=== PATIENT | female | born 1955 | race Caucasian/White ===

== ENCOUNTER 2020-11-23 04:46 | Day surgery (SDC) | payer OTHER ==
[2020-11-22 10:16] VITALS: BMI 24.9
[2020-11-23] MEDS ORDERED: ACETAMINOPHEN INJECTION 100 ML IVPB ONE (13:12)
[2020-11-23] MEDS ORDERED: ACETAMINOPHEN 1000 MG/100 ML VIAL (NON FORMULARY) IVPB ONE (14:00)
[2020-11-23 16:07] VITALS: BP 114/66; PULSE 68
[2020-11-23 16:10] VITALS: TEMP 98
== END 2020-11-23 16:00 | disposition home or self-care (01) ==
LOC: JRADIR 04:46
PROVIDERS: ATTEND Internal Medicine Hematology & Oncology
PROC: 0FB13ZX Excision of Right Lobe Liver, Percutaneous Approach, Diagnostic (ICD-10-PCS; principal; 2020-11-23)
DX: C22.7 Other specified carcinomas of liver (principal)
CPT/HCPCS: 47000; 76942-TC; 87899; 88305-TC; 88341-TC; 88342-TC; J0131

== ENCOUNTER → 2020-11-28 | Day surgery (SDC) | payer OTHER ==
[2020-11-27 15:15] VITALS: BMI 24.9
[~2020-11-28] MED LIST: ACETAMINOPHEN 1000 MG/100 ML VIAL (NON FORMULARY) IVPB ONE; MIDAZOLAM HCL 2 MG/2 ML SINGLE DOSE VIAL IVPUSH ONE; MIDAZOLAM HCL 2 MG/2 ML SINGLE DOSE VIAL ONE; SODIUM CHLORIDE 1,000 ML IV SCH
[2020-11-28 09:47] LABS: BASO % 1.1 % (0-2.0); EOS % 1.2 % (0-4.5); HEMATOCRIT 45.9 % (32.4-45.2); HEMOGLOBIN 15.7 GM/dL (10.7-15.3); LYMPH % 22.9 % (8-40); MCH 30.4 pg (25.7-33.7); MCHC 34.3 g/dl (32.0-36.0); MEAN CELL VOLUME 88.6 fl (80-96); MEAN PLT VOLUME 7.4 fl (7.5-11.1); MONO % 7.1 % (3.8-10.2); NEUT % 67.7 % (42.8-82.8); PLATELET COUNT 381 10^3/uL (134-434); RBC 5.18 M/mm3 (3.60-5.2); RDW 13.4 % (11.6-15.6); WHITE BLOOD COUNT 6.1 K/mm3 (4.0-10.0)
[2020-11-28 10:08] LABS: ALBUMIN 3.9 g/dl (3.4-5.0); CALCIUM 9.9 mg/dL (8.5-10.1)
[2020-11-28 10:11] LABS: CREATININE 0.6 mg/dL (0.55-1.3)
[2020-11-28 10:12] LABS: BLOOD UREA NITROGEN 12.7 mg/dL (7-18)
[2020-11-28 10:13] LABS: TOT PROT 7.6 g/dl (6.4-8.2)
[2020-11-28 14:13] VITALS: BP 115/75; PULSE 78; TEMP 97
== END | disposition home or self-care (01) ==
LOC: JRADIR 04:52
PROVIDERS: ATTEND Internal Medicine Hematology & Oncology
PROC: 02HV33Z Insertion of Infusion Device into Superior Vena Cava, Percutaneous Approach (ICD-10-PCS; principal; 2020-11-28)
PROC: B548ZZA Ultrasonography of Superior Vena Cava, Guidance (ICD-10-PCS; 2020-11-28)
DX: C25.9 Malignant neoplasm of pancreas, unspecified (principal)
CPT/HCPCS: 36415; 36561; 80053; 85025

== ENCOUNTER 2020-11-29 07:13 | Day surgery (SDC) | payer OTHER ==
[2020-11-29] MEDS ORDERED: SODIUM CHLORIDE 250 ML IV ONE (10:00)
[2020-11-29] MEDS ORDERED: FLUOROURACIL CP ONE ×3 (10:00→15:00)
[2020-11-29] MEDS ORDERED: SODIUM CHLORIDE CP ONE ×3 (10:00→15:00)
[2020-11-29] MEDS ORDERED: DEXAMETHASONE INJECTION 10 MG in SODIUM CHLORIDE 50 ML IVPB ONE (10:30)
[2020-11-29] MEDS ORDERED: PALONOSETRON HCL 0.25 MG/5 ML VIAL IVPUSH ONE (10:30)
[2020-11-29] MEDS ORDERED: ATROPINE SO4 0.4 MG/1 ML VIAL SQ ONE (10:30)
[2020-11-29] MEDS ORDERED: FOSAPREPITANT DIMEGLUMINE 150 MG VIAL IVPB ONE (10:30)
[2020-11-29] MEDS ORDERED: LEUCOVORIN CALCIUM IVPB ONE (13:00)
[2020-11-29] MEDS ORDERED: DEXTROSE 5% IVPB ONE (13:00)
[2020-11-29] MEDS ORDERED: WATER IVPB ONE (13:00)
[2020-11-29] MEDS ORDERED: IRINOTECAN HCL 270 MG in DEXTROSE 5%-WATER - 500 ML IVPB ONE (13:30)
[2020-11-29 17:55] VITALS: TEMP 98.1
[2020-11-29 17:58] VITALS: BP 117/70; PULSE 70
[2020-11-30] MEDS ORDERED: PORTA CATH FLUSH 10 ML IVPUSH ONE (07:32)
== END 2020-11-29 18:04 | disposition home or self-care (01) ==
LOC: JONCCHEMO 07:13
PROVIDERS: ATTEND Internal Medicine Hematology & Oncology
DX: Z51.11 Encounter for antineoplastic chemotherapy (principal); C25.9 Malignant neoplasm of pancreas, unspecified
CPT/HCPCS: 96361; 96366; 96367; 96375; 96413; 96415; 96417; G0498; J1100; J1453; J2469; J9206; J9263

== ENCOUNTER 2020-12-03 07:01 | Day surgery (SDC) | payer OTHER ==
[2020-12-03] MEDS ORDERED: TBO-FILGRASTIM 300 MCG/0.5 ML DISP.SYRINGE SQ ONE (10:00)
[2020-12-03 17:47] VITALS: BP 112/76; PULSE 74; TEMP 98.3
== END 2020-12-03 09:50 | disposition home or self-care (01) ==
LOC: JONCCHEMO 07:01
PROVIDERS: ATTEND Internal Medicine Hematology & Oncology
PROC: 3E013GC Introduction of Other Therapeutic Substance into Subcutaneous Tissue, Percutaneous Approach (ICD-10-PCS; principal; 2020-12-03)
DX: C25.9 Malignant neoplasm of pancreas, unspecified (principal); Z76.89 Persons encountering health services in other specified circumstances
CPT/HCPCS: 96372; J1447

== ENCOUNTER 2020-12-05 07:22 | Day surgery (SDC) | payer OTHER ==
[2020-12-05] MEDS ORDERED: TBO-FILGRASTIM 300 MCG/0.5 ML DISP.SYRINGE SQ ONE (10:30)
[2020-12-05 17:50] VITALS: BP 137/93; PULSE 114; TEMP 97.5
== END 2020-12-05 12:00 | disposition home or self-care (01) ==
LOC: JONCCHEMO 07:22
PROVIDERS: ATTEND Internal Medicine Hematology & Oncology
PROC: 3E013GC Introduction of Other Therapeutic Substance into Subcutaneous Tissue, Percutaneous Approach (ICD-10-PCS; principal; 2020-12-05)
DX: C25.9 Malignant neoplasm of pancreas, unspecified (principal); Z76.89 Persons encountering health services in other specified circumstances
CPT/HCPCS: 96372; J1447

== ENCOUNTER 2020-12-07 07:47 | Day surgery (SDC) | payer OTHER ==
[2020-12-07 09:43] LABS: HEMATOCRIT 43.6 % (32.4-45.2); HEMOGLOBIN 15.2 GM/dL (10.7-15.3); MCH 29.9 pg (25.7-33.7); MCHC 34.8 g/dl (32.0-36.0); MEAN CELL VOLUME 85.9 fl (80-96); MEAN PLT VOLUME 7.4 fl (7.5-11.1); PLATELET COUNT 159 10^3/uL (134-434); RBC 5.07 M/mm3 (3.60-5.2); RDW 13.2 % (11.6-15.6); WHITE BLOOD COUNT 4.4 K/mm3 (4.0-10.0)
[2020-12-07] MEDS ORDERED: TBO-FILGRASTIM 300 MCG/0.5 ML DISP.SYRINGE SQ ONE (10:00)
[2020-12-07 10:09] LABS: CALCIUM 8.5 mg/dL (8.5-10.1)
[2020-12-07 10:10] LABS: BLOOD UREA NITROGEN 11.6 mg/dL (7-18)
[2020-12-07 10:13] LABS: CREATININE 0.7 mg/dL (0.55-1.3)
[2020-12-07 10:14] LABS: BILIRUBIN,TOTAL 0.4 mg/dL (0.2-1); TOT PROT 6.4 g/dl (6.4-8.2)
[2020-12-07 10:39] LABS: ANISOCYTOSIS 1+; MACROCYTOSIS 0; PLATELET ESTIMATE DECREASED; TOXIC GRANULATION 2+
[2020-12-07 17:23] VITALS: BP 117/73; PULSE 79; TEMP 97.4
== END 2020-12-07 10:10 | disposition home or self-care (01) ==
LOC: JONCNONCHE 07:47
PROVIDERS: ATTEND Internal Medicine Hematology & Oncology
PROC: 3E013GC Introduction of Other Therapeutic Substance into Subcutaneous Tissue, Percutaneous Approach (ICD-10-PCS; principal; 2020-12-07)
DX: C25.9 Malignant neoplasm of pancreas, unspecified (principal); Z76.89 Persons encountering health services in other specified circumstances
CPT/HCPCS: 36415; 80053; 85025; 96372; J1447

== ENCOUNTER 2020-12-12 07:53 | Day surgery (SDC) | payer OTHER ==
[2020-12-12] MEDS ORDERED: SODIUM CHLORIDE 250 ML IV ONE (09:00)
[2020-12-12] MEDS ORDERED: FOSAPREPITANT DIMEGLUMINE 150 MG in SODIUM CHLORIDE 145 ML IVPB ONE (09:30)
[2020-12-12] MEDS ORDERED: PALONOSETRON HCL 0.25 MG/5 ML VIAL IVPUSH ONE (09:30)
[2020-12-12] MEDS ORDERED: DEXAMETHASONE INJECTION 10 MG in SODIUM CHLORIDE 50 ML IVPB ONE (09:30)
[2020-12-12] MEDS ORDERED: ATROPINE SO4 0.4 MG/1 ML VIAL SQ ONE (09:30)
[2020-12-12 09:51] LABS: HEMOGLOBIN 14.6 GM/dL (10.7-15.3); MCHC 35.7 g/dl (32.0-36.0); MEAN CELL VOLUME 84.2 fl (80-96); PLATELET COUNT 399 10^3/uL (134-434); RBC 4.87 M/mm3 (3.60-5.2); RDW 13.3 % (11.6-15.6); WHITE BLOOD COUNT 4.1 K/mm3 (4.0-10.0)
[2020-12-12 10:14] LABS: CHLORIDE 101 mmol/L (98-107); SODIUM 135 mmol/L (136-145)
[2020-12-12 10:18] LABS: ALBUMIN 2.4 g/dl (3.4-5.0); BLOOD UREA NITROGEN 14.5 mg/dL (7-18); CALCIUM 8.6 mg/dL (8.5-10.1); CO2 25 mmol/L (21-32)
[2020-12-12 10:19] LABS: GLUCOSE,RANDOM 146 mg/dL (74-106)
[2020-12-12 10:21] LABS: SGOT/AST 24 U/L (15-37); SGPT/ALT 55 U/L (13-61)
[2020-12-12 10:22] LABS: CREATININE 1.1 mg/dL (0.55-1.3)
[2020-12-12 10:23] LABS: BILIRUBIN,TOTAL 0.7 mg/dL (0.2-1); TOT PROT 5.6 g/dl (6.4-8.2)
[2020-12-12 10:24] LABS: ALK PHOS 101 U/L (45-117)
[2020-12-12 10:28] LABS: ANION GAP 9 MMOL/L (8-16)
[2020-12-12] MEDS ORDERED: SODIUM CHLORIDE 500 ML IV STA (10:47)
[2020-12-12] MEDS ORDERED: POTASSIUM CHLORIDE ORAL LIQUID 20 MEQ/15 ML PO ONE ×2 (10:47→20:48)
[2020-12-12] MEDS: KCL 10 MEQ IVPB 10 MEQ/100 ML INFUS.BAG IVPB SCH ×3 (11:45→21:00)
[2020-12-12] MEDS ORDERED: WATER IVPB ONE ×2 (12:00→13:30)
[2020-12-12] MEDS ORDERED: DEXTROSE 5% IVPB ONE ×2 (12:00→13:30)
[2020-12-12] MEDS ORDERED: LEUCOVORIN IVPB ONE (12:00)
[2020-12-12 12:10] LABS: PLATELET ESTIMATE NORMAL
[2020-12-12] MEDS ORDERED: IRINOTECAN HCL 270 MG in DEXTROSE 5%-WATER - 500 ML IVPB ONE (12:30)
[2020-12-12] MEDS ORDERED: ALTEPLASE (CATHFLO) 2 MG/2 ML VIAL CVP ONE (12:48)
[2020-12-12] MEDS ORDERED: DEXAMETHASONE SOD PHOSPHATE 20 MG/5 ML VIAL IVPB ONE (12:51)
[2020-12-12] MEDS ORDERED: DEXAMETHASONE SODIUM PHOSPHATE 20 MG, DIPHENHYDRAMINE 25 MG in SODIUM CHLORIDE 100 ML IVPB ONE (13:30)
[2020-12-12] MEDS ORDERED: IRINOTECAN HCL IVPB ONE (13:30)
[2020-12-12] MEDS ORDERED: SODIUM CHLORIDE CP ONE (14:00)
[2020-12-12] MEDS ORDERED: FLUOROURACIL CP ONE (14:00)
[2020-12-12 20:36] VITALS: TEMP 97.7
[2020-12-12 21:58] VITALS: BP 121/74; PULSE 69
== END 2020-12-12 22:03 | disposition home or self-care (01) ==
LOC: JONCCHEMO 07:53
PROVIDERS: ATTEND Internal Medicine Hematology & Oncology
PROC: B518YZZ Fluoroscopy of Superior Vena Cava using Other Contrast (ICD-10-PCS; principal; 2020-12-12)
PROC: 3E04305 Introduction of Other Antineoplastic into Central Vein, Percutaneous Approach (ICD-10-PCS; 2020-12-12)
DX: Z51.11 Encounter for antineoplastic chemotherapy (principal); C25.9 Malignant neoplasm of pancreas, unspecified
CPT/HCPCS: 36010; 36415; 36598; 75827-TC-FY; 80053; 84132; 85025; 96366; 96367; 96375; 96413; 96415; 96417; J1453; J2469; J2997; J9206; J9263

== ENCOUNTER 2020-12-14 08:43 | Day surgery (SDC) | payer OTHER ==
[2020-12-14] MEDS ORDERED: SODIUM CHLORIDE 1,000 ML IV ONE (11:30)
[2020-12-14 11:53] LABS: BASO % 0.1 % (0-2.0); EOS % 0.1 % (0-4.5); HEMATOCRIT 39.3 % (32.4-45.2); HEMOGLOBIN 13.9 GM/dL (10.7-15.3); LYMPH % 14.2 % (8-40); MCH 30.1 pg (25.7-33.7); MCHC 35.5 g/dl (32.0-36.0); MEAN CELL VOLUME 84.9 fl (80-96); NEUT % 77.6 % (42.8-82.8); PLATELET COUNT 431 10^3/uL (134-434); RBC 4.63 M/mm3 (3.60-5.2); RDW 13.4 % (11.6-15.6); WHITE BLOOD COUNT 3.7 K/mm3 (4.0-10.0)
[2020-12-14 12:12] LABS: ALBUMIN 2.7 g/dl (3.4-5.0); CALCIUM 8.8 mg/dL (8.5-10.1)
[2020-12-14 12:13] LABS: BLOOD UREA NITROGEN 18.3 mg/dL (7-18); MAGNESIUM 2.2 mg/dL (1.8-2.4)
[2020-12-14 12:16] LABS: CREATININE 1.1 mg/dL (0.55-1.3)
[2020-12-14 12:17] LABS: BILIRUBIN,TOTAL 0.6 mg/dL (0.2-1); TOT PROT 6.1 g/dl (6.4-8.2)
[2020-12-14] MEDS ORDERED: SODIUM CHLORIDE 1,000 ML IV SCH (14:30)
[2020-12-14] MEDS ORDERED: POTASSIUM CHLORIDE ORAL LIQUID 20 MEQ/15 ML PO ONE (14:45)
[2020-12-14 17:06] VITALS: TEMP 97.8
[2020-12-14 19:31] VITALS: BP 113/69; PULSE 66
== END 2020-12-14 19:32 | disposition home or self-care (01) ==
LOC: JONCCHEMO 08:43
PROVIDERS: ATTEND Internal Medicine Hematology & Oncology
PROC: 3E0437Z Introduction of Electrolytic and Water Balance Substance into Central Vein, Percutaneous Approach (ICD-10-PCS; principal; 2020-12-14)
DX: C25.9 Malignant neoplasm of pancreas, unspecified (principal)
CPT/HCPCS: 36415; 80053; 83735; 85025; 96360; 96361

== ENCOUNTER 2020-12-18 07:26 | Day surgery (SDC) | payer OTHER ==
[2020-12-18] MEDS ORDERED: SODIUM CHLORIDE 500 ML IV ONE (10:30)
[2020-12-18 15:49] VITALS: TEMP 98.2
[2020-12-18 15:51] VITALS: BP 92/46; PULSE 74
== END 2020-12-18 12:20 | disposition home or self-care (01) ==
LOC: JONCNONCHE 07:26
PROVIDERS: ATTEND Internal Medicine Hematology & Oncology
PROC: 3E0437Z Introduction of Electrolytic and Water Balance Substance into Central Vein, Percutaneous Approach (ICD-10-PCS; principal; 2020-12-18)
DX: C25.9 Malignant neoplasm of pancreas, unspecified (principal); Z76.89 Persons encountering health services in other specified circumstances
CPT/HCPCS: 96360; 96361

== ENCOUNTER 2020-12-20 07:47 | Day surgery (SDC) | payer OTHER ==
[2020-12-20 10:13] LABS: HEMATOCRIT 37.7 % (32.4-45.2); HEMOGLOBIN 13.1 GM/dL (10.7-15.3); MCHC 34.7 g/dl (32.0-36.0); MEAN CELL VOLUME 86.4 fl (80-96); MEAN PLT VOLUME 7.8 fl (7.5-11.1); PLATELET COUNT 127 10^3/uL (134-434); RBC 4.36 M/mm3 (3.60-5.2); RDW 13.5 % (11.6-15.6); WHITE BLOOD COUNT 2.3 K/mm3 (4.0-10.0)
[2020-12-20] MEDS ORDERED: SODIUM CHLORIDE 500 ML IV ONE (10:30)
[2020-12-20 10:33] LABS: CALCIUM 7.9 mg/dL (8.5-10.1)
[2020-12-20 10:34] LABS: ALBUMIN 2.7 g/dl (3.4-5.0); BLOOD UREA NITROGEN 6.3 mg/dL (7-18)
[2020-12-20 10:37] LABS: CREATININE 0.8 mg/dL (0.55-1.3)
[2020-12-20 10:39] LABS: BILIRUBIN,TOTAL 0.4 mg/dL (0.2-1); TOT PROT 5.4 g/dl (6.4-8.2)
[2020-12-20 11:24] LABS: ANISOCYTOSIS 0; HELMET CELLS 0; HOWELL-JOLLY BODIES 0; MACROCYTOSIS 0; OVALOCYTE 0; PLATELET ESTIMATE DECREASED; ROULEAU 0; SICKELED CELLS 0; TARGET CELLS 0; TEAR DROP CELLS 0; TOXIC GRANULATION 0
[2020-12-20] MEDS ORDERED: POTASSIUM CHLORIDE TABS 20 MEQ TABLET.ER (FP) PO ONE (12:15)
[2020-12-20 14:10] VITALS: TEMP 97.4
[2020-12-20 14:27] VITALS: BP 124/77; PULSE 74
== END 2020-12-20 12:25 | disposition home or self-care (01) ==
LOC: JONCCHEMO 07:47
PROVIDERS: ATTEND Internal Medicine Hematology & Oncology
PROC: 3E0437Z Introduction of Electrolytic and Water Balance Substance into Central Vein, Percutaneous Approach (ICD-10-PCS; principal; 2020-12-20)
DX: C25.9 Malignant neoplasm of pancreas, unspecified (principal); Z76.89 Persons encountering health services in other specified circumstances
CPT/HCPCS: 36415; 80053; 82378; 83735; 85025; 86301; 96360; 96361

== ENCOUNTER → 2020-12-26 | Day surgery (SDC) | payer OTHER ==
[~2020-12-26] MED LIST changes: -ACETAMINOPHEN 1000 MG/100 ML VIAL (NON FORMULARY) IVPB ONE; +ATROPINE SO4 0.4 MG/1 ML VIAL SQ ONE; +DEXAMETHASONE INJECTION 10 MG in SODIUM CHLORIDE 50 ML IVPB ONE; +DEXTROSE 5% IVPB ONE; +FLUOROURACIL 4,350 MG in SODIUM CHLORIDE 5 ML CP ONE; +FOSAPREPITANT DIMEGLUMINE 150 MG in SODIUM CHLORIDE 145 ML IVPB ONE; +IRINOTECAN HCL IVPB ONE; +LEUCOVORIN IVPB ONE; -MIDAZOLAM HCL 2 MG/2 ML SINGLE DOSE VIAL IVPUSH ONE; -MIDAZOLAM HCL 2 MG/2 ML SINGLE DOSE VIAL ONE; +PALONOSETRON HCL 0.25 MG/5 ML VIAL IVPUSH ONE; +POTASSIUM CHLORIDE 10 MEQ PREMIX IVPB (POTASSIUM RIDER) IVPB SCH; +POTASSIUM CHLORIDE 20 MEQ PREMIX IVPB 100 ML IVPB ONE; +POTASSIUM CHLORIDE 20 MEQ PREMIX IVPB 100 ML IVPB SCH; +POTASSIUM CHLORIDE TABS 10 MEQ TABLET.ER (FP) PO ONE; +SODIUM CHLORIDE 0.9% 500 ML INFUS.BAG IV ONE; -SODIUM CHLORIDE 1,000 ML IV SCH; +SODIUM CHLORIDE 250 ML IV ONE; +WATER IVPB ONE
[2020-12-26 09:12] LABS: HEMATOCRIT 36.4 % (32.4-45.2); HEMOGLOBIN 12.7 GM/dL (10.7-15.3); MCH 29.7 pg (25.7-33.7); MCHC 34.9 g/dl (32.0-36.0); MEAN CELL VOLUME 85.1 fl (80-96); PLATELET COUNT 199 10^3/uL (134-434); RBC 4.28 M/mm3 (3.60-5.2); RDW 14.5 % (11.6-15.6); WHITE BLOOD COUNT 9.3 K/mm3 (4.0-10.0)
[2020-12-26 09:38] LABS: CHLORIDE 108 mmol/L (98-107); SODIUM 143 mmol/L (136-145)
[2020-12-26 09:41] LABS: ALBUMIN 2.2 g/dl (3.4-5.0); BLOOD UREA NITROGEN 10.6 mg/dL (7-18); CO2 29 mmol/L (21-32); GLUCOSE,RANDOM 86 mg/dL (74-106)
[2020-12-26 09:44] LABS: CREATININE 0.7 mg/dL (0.55-1.3); SGOT/AST 27 U/L (15-37); SGPT/ALT 27 U/L (13-61)
[2020-12-26 09:46] LABS: BILIRUBIN,TOTAL 0.3 mg/dL (0.2-1)
[2020-12-26 10:00] LABS: ALK PHOS 143 U/L (45-117); ANION GAP 7 MMOL/L (8-16)
[2020-12-26 10:40] LABS: ANISOCYTOSIS 1+; MACROCYTOSIS 0; PLATELET ESTIMATE NORMAL; TEAR DROP CELLS 1+; TOXIC GRANULATION 2+
[2020-12-26] MEDS: KCL 10 MEQ IVPB 10 MEQ/100 ML INFUS.BAG IVPB SCH ×2 (11:25→12:18)
[2020-12-26 16:49] VITALS: TEMP 97.4
[2020-12-26 19:01] VITALS: BP 120/79; PULSE 66
== END | disposition home or self-care (01) ==
LOC: JONCCHEMO 08:21
PROVIDERS: ATTEND Internal Medicine Hematology & Oncology
DX: Z51.11 Encounter for antineoplastic chemotherapy (principal); C25.9 Malignant neoplasm of pancreas, unspecified
CPT/HCPCS: 36415; 80053; 83735; 85025; 96361; 96366; 96367; 96375; 96413; 96415; 96417; G0498; J1100; J1453; J2469; J9206; J9263

== ENCOUNTER 2020-12-28 08:36 | Day surgery (SDC) | payer OTHER ==
[2020-12-28] MEDS ORDERED: ALTEPLASE (CATHFLO) 2 MG/2 ML VIAL NR ONE (13:00)
[2020-12-28] MEDS ORDERED: D5-1/2NS+20 MEQ KCL - 20 MEQ/1,000 ML INFUS.BAG IV ONE (13:00)
[2020-12-28] MEDS ORDERED: MAGNESIUM 1GM/D5W - 1 GM/100 ML IVPB IVPB ONE (13:00)
[2020-12-28 13:34] LABS: BASO % 0.1 % (0-2.0); EOS % 0.2 % (0-4.5); HEMATOCRIT 35.8 % (32.4-45.2); HEMOGLOBIN 12.2 GM/dL (10.7-15.3); LYMPH % 34.6 % (8-40); MCH 29.5 pg (25.7-33.7); MCHC 34.2 g/dl (32.0-36.0); MEAN CELL VOLUME 86.3 fl (80-96); MEAN PLT VOLUME 7.2 fl (7.5-11.1); MONO % 4.2 % (3.8-10.2); NEUT % 60.9 % (42.8-82.8); PLATELET COUNT 191 10^3/uL (134-434); RBC 4.15 M/mm3 (3.60-5.2); RDW 14.4 % (11.6-15.6); WHITE BLOOD COUNT 3.9 K/mm3 (4.0-10.0)
[2020-12-28 13:54] LABS: CALCIUM 8.3 mg/dL (8.5-10.1)
[2020-12-28 13:56] LABS: ALBUMIN 2.4 g/dl (3.4-5.0); BLOOD UREA NITROGEN 15.1 mg/dL (7-18); MAGNESIUM 2.3 mg/dL (1.8-2.4)
[2020-12-28 13:58] LABS: CREATININE 0.7 mg/dL (0.55-1.3)
[2020-12-28 14:00] LABS: BILIRUBIN,TOTAL 0.5 mg/dL (0.2-1); TOT PROT 5.3 g/dl (6.4-8.2)
[2020-12-28 15:48] VITALS: BP 99/55; PULSE 62; TEMP 98
== END 2020-12-28 18:05 | disposition home or self-care (01) ==
LOC: JONCCHEMO 08:36
PROVIDERS: ATTEND Internal Medicine Hematology & Oncology
PROC: 3E043GC Introduction of Other Therapeutic Substance into Central Vein, Percutaneous Approach (ICD-10-PCS; principal; 2020-12-28)
PROC: 3E043GC Introduction of Other Therapeutic Substance into Central Vein, Percutaneous Approach (ICD-10-PCS; 2020-12-28)
DX: C25.9 Malignant neoplasm of pancreas, unspecified (principal); Z76.89 Persons encountering health services in other specified circumstances
CPT/HCPCS: 36415; 80053; 83735; 84100; 85025; 96361; 96365; J2997

== ENCOUNTER 2021-01-23 07:58 | Day surgery (SDC) | payer OTHER ==
[~2021-01-23 07:58] MED LIST changes: -DEXAMETHASONE INJECTION 10 MG in SODIUM CHLORIDE 50 ML IVPB ONE; +DEXAMETHASONE SODIUM PHOSPHATE 10 MG in SODIUM CHLORIDE 50 ML IVPB ONE; -POTASSIUM CHLORIDE 10 MEQ PREMIX IVPB (POTASSIUM RIDER) IVPB SCH; -POTASSIUM CHLORIDE 20 MEQ PREMIX IVPB 100 ML IVPB ONE; -POTASSIUM CHLORIDE 20 MEQ PREMIX IVPB 100 ML IVPB SCH; -POTASSIUM CHLORIDE TABS 10 MEQ TABLET.ER (FP) PO ONE; -SODIUM CHLORIDE 0.9% 500 ML INFUS.BAG IV ONE
[2021-01-23] MEDS ORDERED: SODIUM CHLORIDE 250 ML IV ONE (10:00)
[2021-01-23 10:19] LABS: BASO % 1.9 % (0-2.0); EOS % 0.6 % (0-4.5); HEMATOCRIT 35.1 % (32.4-45.2); HEMOGLOBIN 11.5 GM/dL (10.7-15.3); LYMPH % 45.5 % (8-40); MCH 29.7 pg (25.7-33.7); MCHC 32.8 g/dl (32.0-36.0); MEAN CELL VOLUME 90.6 fl (80-96); MEAN PLT VOLUME 6.3 fl (7.5-11.1); MONO % 13.6 % (3.8-10.2); NEUT % 38.4 % (42.8-82.8); PLATELET COUNT 434 10^3/uL (134-434); RBC 3.88 M/mm3 (3.60-5.2); RDW 18.3 % (11.6-15.6); WHITE BLOOD COUNT 4.3 K/mm3 (4.0-10.0)
[2021-01-23] MEDS ORDERED: PALONOSETRON HCL 0.25 MG/5 ML VIAL IVPUSH ONE (10:30)
[2021-01-23] MEDS ORDERED: FOSAPREPITANT DIMEGLUMINE 150 MG in SODIUM CHLORIDE 145 ML IVPB ONE (10:30)
[2021-01-23] MEDS ORDERED: ATROPINE SO4 0.4 MG/1 ML VIAL SQ ONE (10:30)
[2021-01-23] MEDS ORDERED: DEXAMETHASONE INJECTION 10 MG in SODIUM CHLORIDE 50 ML IVPB ONE (10:30)
[2021-01-23 10:41] LABS: CALCIUM 8.7 mg/dL (8.5-10.1)
[2021-01-23 10:42] LABS: ALBUMIN 2.5 g/dl (3.4-5.0); BLOOD UREA NITROGEN 13.2 mg/dL (7-18); MAGNESIUM 2.6 mg/dL (1.8-2.4)
[2021-01-23 10:45] LABS: CREATININE 0.6 mg/dL (0.55-1.3)
[2021-01-23 10:47] LABS: BILIRUBIN,TOTAL 0.3 mg/dL (0.2-1); TOT PROT 6.2 g/dl (6.4-8.2)
[2021-01-23] MEDS ORDERED: SODIUM CHLORIDE 500 ML IV ONE (11:45)
[2021-01-23] MEDS ORDERED: WATER IVPB ONE ×2 (13:00)
[2021-01-23] MEDS ORDERED: IRINOTECAN HCL IVPB ONE (13:00)
[2021-01-23] MEDS ORDERED: DEXTROSE 5% IVPB ONE ×2 (13:00)
[2021-01-23] MEDS ORDERED: LEUCOVORIN IVPB ONE (13:00)
[2021-01-23] MEDS ORDERED: FLUOROURACIL 4,350 MG in SODIUM CHLORIDE 5 ML CP ONE (14:00)
[2021-01-23 17:52] VITALS: TEMP 98
[2021-01-23 18:42] VITALS: BP 127/76; PULSE 52
[2021-01-25 08:06] LABS: CARCINOEMBRYONIC ANTIGEN 40.1 ng/mL (0.0-4.7)
== END 2021-01-23 18:42 | disposition home or self-care (01) ==
LOC: JONCCHEMO 07:58
PROVIDERS: ATTEND Internal Medicine Hematology & Oncology
DX: Z51.11 Encounter for antineoplastic chemotherapy (principal); C25.9 Malignant neoplasm of pancreas, unspecified
CPT/HCPCS: 36415; 80053; 82378; 83735; 85025; 86301; 96361; 96366; 96367; 96375; 96413; 96415; 96417; G0498; J1100; J1453; J2469; J9206; J9263

== ENCOUNTER 2021-02-06 07:25 | Day surgery (SDC) | payer OTHER ==
[2021-02-06 10:00] LABS: BASO % 1.4 % (0-2.0); EOS % 3.4 % (0-4.5); HEMATOCRIT 36.3 % (32.4-45.2); HEMOGLOBIN 12.1 GM/dL (10.7-15.3); LYMPH % 49.2 % (8-40); MCH 30.1 pg (25.7-33.7); MCHC 33.4 g/dl (32.0-36.0); MEAN CELL VOLUME 90.1 fl (80-96); MEAN PLT VOLUME 6.8 fl (7.5-11.1); MONO % 9.8 % (3.8-10.2); NEUT % 36.2 % (42.8-82.8); PLATELET COUNT 216 10^3/uL (134-434); RBC 4.03 M/mm3 (3.60-5.2); RDW 17.5 % (11.6-15.6)
[2021-02-06 10:19] LABS: ALBUMIN 2.9 g/dl (3.4-5.0); CALCIUM 8.9 mg/dL (8.5-10.1); MAGNESIUM 2.4 mg/dL (1.8-2.4)
[2021-02-06 10:20] LABS: BLOOD UREA NITROGEN 11.4 mg/dL (7-18)
[2021-02-06 10:22] LABS: CREATININE 0.5 mg/dL (0.55-1.3)
[2021-02-06 10:24] LABS: BILIRUBIN,TOTAL 0.4 mg/dL (0.2-1); TOT PROT 6.4 g/dl (6.4-8.2)
[2021-02-06] MEDS ORDERED: SODIUM CHLORIDE 250 ML IV ONE (11:30)
[2021-02-06] MEDS ORDERED: FOSAPREPITANT DIMEGLUMINE 150 MG in SODIUM CHLORIDE 145 ML IVPB ONE (12:00)
[2021-02-06] MEDS ORDERED: DEXAMETHASONE INJECTION 10 MG in SODIUM CHLORIDE 50 ML IVPB ONE (12:00)
[2021-02-06] MEDS ORDERED: PALONOSETRON HCL 0.25 MG/5 ML VIAL IVPUSH ONE (12:00)
[2021-02-06] MEDS ORDERED: ATROPINE SO4 0.4 MG/1 ML VIAL SQ ONE (12:00)
[2021-02-06] MEDS ORDERED: POTASSIUM CHLORIDE TABS 10 MEQ TABLET.ER (FP) PO ONE (12:18)
[2021-02-06] MEDS ORDERED: POTASSIUM CHLORIDE TABS 20 MEQ TABLET.ER (FP) PO ONE (13:00)
[2021-02-06] MEDS ORDERED: KCL 10 MEQ IVPB 10 MEQ/100 ML INFUS.BAG IVPB SCH (13:00)
[2021-02-06] MEDS ORDERED: LEUCOVORIN IVPB ONE (14:00)
[2021-02-06] MEDS ORDERED: IRINOTECAN HCL 210 MG in DEXTROSE 5%-WATER - 500 ML IVPB ONE (14:00)
[2021-02-06] MEDS ORDERED: WATER IVPB ONE (14:00)
[2021-02-06] MEDS ORDERED: DEXTROSE 5% IVPB ONE (14:00)
[2021-02-06] MEDS ORDERED: FLUOROURACIL CP ONE (14:30)
[2021-02-06] MEDS ORDERED: SODIUM CHLORIDE CP ONE (14:30)
[2021-02-06 18:42] VITALS: TEMP 97.9
[2021-02-06] MEDS ORDERED: PORTA CATH FLUSH 10 ML IVPUSH ONE (18:52)
[2021-02-06 19:34] VITALS: BP 135/84; PULSE 58
== END 2021-02-06 19:42 | disposition home or self-care (01) ==
LOC: JONCCHEMO 07:25
PROVIDERS: ATTEND Internal Medicine Hematology & Oncology
DX: Z51.11 Encounter for antineoplastic chemotherapy (principal); C25.9 Malignant neoplasm of pancreas, unspecified
CPT/HCPCS: 36415; 80053; 83735; 85025; 96366; 96367; 96374; 96375; 96413; 96415; 96417; G0498; J1100; J1453; J2469; J9206; J9263

== ENCOUNTER 2021-02-08 07:57 | Day surgery (SDC) | payer OTHER ==
[2021-02-08 15:59] LABS: CALCIUM 8.6 mg/dL (8.5-10.1)
[2021-02-08 16:00] LABS: BLOOD UREA NITROGEN 11.3 mg/dL (7-18); MAGNESIUM 2.5 mg/dL (1.8-2.4)
[2021-02-08 16:03] LABS: CREATININE 0.5 mg/dL (0.55-1.3)
[2021-02-08 17:01] VITALS: BP 107/71; PULSE 66; TEMP 98.5
== END 2021-02-08 17:00 | disposition home or self-care (01) ==
LOC: JONCNONCHE 07:57
PROVIDERS: ATTEND Internal Medicine Hematology & Oncology
DX: Z53.8 Procedure and treatment not carried out for other reasons (principal)
CPT/HCPCS: 36415; 80048; 83735

== ENCOUNTER 2021-02-20 07:11 | Day surgery (SDC) | payer OTHER ==
[2021-02-20 09:18] LABS: HEMATOCRIT 36.5 % (32.4-45.2); HEMOGLOBIN 12.3 GM/dL (10.7-15.3); MCH 30.9 pg (25.7-33.7); MCHC 33.8 g/dl (32.0-36.0); MEAN CELL VOLUME 91.3 fl (80-96); MEAN PLT VOLUME 7.7 fl (7.5-11.1); PLATELET COUNT 141 10^3/uL (134-434); RDW 17.6 % (11.6-15.6); WHITE BLOOD COUNT 4.5 K/mm3 (4.0-10.0)
[2021-02-20] MEDS ORDERED: SODIUM CHLORIDE 250 ML IV ONE (09:30)
[2021-02-20 09:34] LABS: CALCIUM 8.6 mg/dL (8.5-10.1)
[2021-02-20 09:35] LABS: ALBUMIN 2.8 g/dl (3.4-5.0); BLOOD UREA NITROGEN 8.7 mg/dL (7-18); MAGNESIUM 2.3 mg/dL (1.8-2.4)
[2021-02-20 09:38] LABS: CREATININE 0.5 mg/dL (0.55-1.3)
[2021-02-20 09:39] LABS: BILIRUBIN,TOTAL 0.4 mg/dL (0.2-1); TOT PROT 6.4 g/dl (6.4-8.2)
[2021-02-20 10:00] LABS: ANISOCYTOSIS 0; HELMET CELLS 0; HOWELL-JOLLY BODIES 0; MACROCYTOSIS 0; OVALOCYTE 0; PLATELET ESTIMATE DECREASED; ROULEAU 0; SICKELED CELLS 0; TARGET CELLS 0; TEAR DROP CELLS 0; TOXIC GRANULATION 0
[2021-02-20] MEDS ORDERED: DEXAMETHASONE SODIUM PHOSPHATE 10 MG in SODIUM CHLORIDE 50 ML IVPB ONE (10:00)
[2021-02-20] MEDS ORDERED: ATROPINE SO4 0.4 MG/1 ML VIAL SQ ONE (10:00)
[2021-02-20] MEDS ORDERED: FOSAPREPITANT DIMEGLUMINE 150 MG in SODIUM CHLORIDE 145 ML IVPB ONE (10:00)
[2021-02-20] MEDS ORDERED: PALONOSETRON HCL 0.25 MG/5 ML VIAL IVPUSH ONE (10:00)
[2021-02-20] MEDS ORDERED: DEXTROSE 5% IVPB ONE (12:30)
[2021-02-20] MEDS ORDERED: WATER IVPB ONE (12:30)
[2021-02-20] MEDS ORDERED: LEUCOVORIN IVPB ONE (12:30)
[2021-02-20] MEDS ORDERED: IRINOTECAN HCL 210 MG in DEXTROSE 5%-WATER - 500 ML IVPB ONE (13:00)
[2021-02-20] MEDS ORDERED: FLUOROURACIL CP ONE (14:30)
[2021-02-20] MEDS ORDERED: SODIUM CHLORIDE CP ONE (14:30)
[2021-02-20 17:04] VITALS: TEMP 97.8
[2021-02-20 18:15] VITALS: BP 126/52; PULSE 64
== END 2021-02-20 18:25 | disposition home or self-care (01) ==
LOC: JONCCHEMO 07:11
PROVIDERS: ATTEND Internal Medicine Hematology & Oncology
DX: Z51.11 Encounter for antineoplastic chemotherapy (principal); C25.9 Malignant neoplasm of pancreas, unspecified
CPT/HCPCS: 36415; 80053; 83735; 85025; 96361; 96366; 96367; 96375; 96413; 96415; 96417; G0498; J1453; J2469; J9206; J9263

== ENCOUNTER 2021-03-13 08:07 | Day surgery (SDC) | payer OTHER ==
[~2021-03-13 08:07] MED LIST changes: -FLUOROURACIL 4,350 MG in SODIUM CHLORIDE 5 ML CP ONE; +FLUOROURACIL CP ONE; +IRINOTECAN HCL 210 MG in DEXTROSE 5%-WATER - 500 ML IVPB ONE; -IRINOTECAN HCL IVPB ONE; +SODIUM CHLORIDE CP ONE
[2021-03-13] MEDS ORDERED: SODIUM CHLORIDE 250 ML IV ONE (10:00)
[2021-03-13] MEDS ORDERED: FOSAPREPITANT DIMEGLUMINE 150 MG in SODIUM CHLORIDE 145 ML IVPB ONE (10:30)
[2021-03-13] MEDS ORDERED: DEXAMETHASONE SODIUM PHOSPHATE 10 MG in SODIUM CHLORIDE 50 ML IVPB ONE (10:30)
[2021-03-13] MEDS ORDERED: ATROPINE SO4 0.4 MG/1 ML VIAL SQ ONE (10:30)
[2021-03-13] MEDS ORDERED: PALONOSETRON HCL 0.25 MG/5 ML VIAL IVPUSH ONE (10:30)
[2021-03-13 10:44] LABS: BASO % 2.9 % (0-2.0); EOS % 1.8 % (0-4.5); HEMOGLOBIN 12.9 GM/dL (10.7-15.3); LYMPH % 49.9 % (8-40); MCHC 33.1 g/dl (32.0-36.0); MEAN CELL VOLUME 93.7 fl (80-96); MEAN PLT VOLUME 6.6 fl (7.5-11.1); MONO % 12.7 % (3.8-10.2); NEUT % 32.7 % (42.8-82.8); PLATELET COUNT 408 10^3/uL (134-434); RBC 4.16 M/mm3 (3.60-5.2); RDW 18.3 % (11.6-15.6)
[2021-03-13 11:04] LABS: ALBUMIN 3.3 g/dl (3.4-5.0); BLOOD UREA NITROGEN 11.5 mg/dL (7-18); CALCIUM 9.7 mg/dL (8.5-10.1); MAGNESIUM 2.6 mg/dL (1.8-2.4)
[2021-03-13 11:07] LABS: CREATININE 0.5 mg/dL (0.55-1.3)
[2021-03-13 11:09] LABS: BILIRUBIN,TOTAL 0.5 mg/dL (0.2-1); TOT PROT 6.7 g/dl (6.4-8.2)
[2021-03-13] MEDS ORDERED: DEXTROSE 5% IVPB ONE (13:00)
[2021-03-13] MEDS ORDERED: WATER IVPB ONE (13:00)
[2021-03-13] MEDS ORDERED: LEUCOVORIN IVPB ONE (13:00)
[2021-03-13] MEDS ORDERED: IRINOTECAN HCL 210 MG in DEXTROSE 5%-WATER - 500 ML IVPB ONE (13:03)
[2021-03-13] MEDS ORDERED: SODIUM CHLORIDE CP ONE (15:00)
[2021-03-13] MEDS ORDERED: FLUOROURACIL CP ONE (15:00)
[2021-03-13 16:00] VITALS: BP 110/61; PULSE 66; TEMP 97.7
[2021-03-13] MEDS ORDERED: PORTA CATH FLUSH 10 ML IVPUSH ONE (16:00)
== END 2021-03-13 11:15 | disposition home or self-care (01) ==
LOC: JONCCHEMO 08:07
PROVIDERS: ATTEND Internal Medicine Hematology & Oncology
PROC: 3E0437Z Introduction of Electrolytic and Water Balance Substance into Central Vein, Percutaneous Approach (ICD-10-PCS; principal; 2021-03-13)
DX: C25.9 Malignant neoplasm of pancreas, unspecified (principal); Z76.89 Persons encountering health services in other specified circumstances
CPT/HCPCS: 36415; 80053; 82378; 83735; 85025; 96360

== ENCOUNTER → 2021-03-20 | Day surgery (SDC) | payer OTHER ==
[~2021-03-20] MED LIST changes: -IRINOTECAN HCL 210 MG in DEXTROSE 5%-WATER - 500 ML IVPB ONE
[2021-03-20 09:07] LABS: BASO % 0.8 % (0-2.0); EOS % 2.8 % (0-4.5); HEMATOCRIT 39.5 % (32.4-45.2); HEMOGLOBIN 12.9 GM/dL (10.7-15.3); LYMPH % 45.9 % (8-40); MCH 30.6 pg (25.7-33.7); MCHC 32.8 g/dl (32.0-36.0); MEAN CELL VOLUME 93.3 fl (80-96); MEAN PLT VOLUME 6.9 fl (7.5-11.1); MONO % 15.5 % (3.8-10.2); PLATELET COUNT 383 10^3/uL (134-434); RBC 4.23 M/mm3 (3.60-5.2); RDW 16.3 % (11.6-15.6); WHITE BLOOD COUNT 3.1 K/mm3 (4.0-10.0)
[2021-03-20 09:20] LABS: CALCIUM 9.2 mg/dL (8.5-10.1)
[2021-03-20 09:20] LABS: ALBUMIN 3.5 g/dl (3.4-5.0)
[2021-03-20 09:21] LABS: ALBUMIN 3.5 g/dl (3.4-5.0); BLOOD UREA NITROGEN 8.9 mg/dL (7-18); MAGNESIUM 2.4 mg/dL (1.8-2.4)
[2021-03-20 09:23] LABS: BILIRUBIN,DIRECT 0.2 mg/dL (0.0-0.2)
[2021-03-20 09:24] LABS: CREATININE 0.6 mg/dL (0.55-1.3)
[2021-03-20 09:25] LABS: BILIRUBIN,TOTAL 0.4 mg/dL (0.2-1); TOT PROT 6.8 g/dl (6.4-8.2)
[2021-03-20 09:25] LABS: TOT PROT 6.8 g/dl (6.4-8.2)
[2021-03-20 09:26] LABS: BILIRUBIN,TOTAL 0.4 mg/dL (0.2-1)
== END | disposition home or self-care (01) ==
LOC: JONCCHEMO 07:15
PROVIDERS: ATTEND Internal Medicine Hematology & Oncology
DX: Z53.8 Procedure and treatment not carried out for other reasons (principal)
CPT/HCPCS: 36415; 80053; 80076; 83735; 85025; 96365

== ENCOUNTER 2021-04-03 08:48 | Day surgery (SDC) | payer OTHER ==
[2021-04-03 09:33] LABS: BASO % 3.2 % (0-2.0); EOS % 4.4 % (0-4.5); HEMATOCRIT 43.3 % (32.4-45.2); HEMOGLOBIN 14.1 GM/dL (10.7-15.3); LYMPH % 39.8 % (8-40); MCH 29.9 pg (25.7-33.7); MCHC 32.6 g/dl (32.0-36.0); MEAN CELL VOLUME 91.7 fl (80-96); MEAN PLT VOLUME 7.1 fl (7.5-11.1); MONO % 9.4 % (3.8-10.2); NEUT % 43.2 % (42.8-82.8); PLATELET COUNT 318 10^3/uL (134-434); RBC 4.72 M/mm3 (3.60-5.2); WHITE BLOOD COUNT 4.1 K/mm3 (4.0-10.0)
[2021-04-03 09:45] LABS: BLOOD UREA NITROGEN 12.4 mg/dL (7-18); CALCIUM 9.5 mg/dL (8.5-10.1)
[2021-04-03 09:46] LABS: ALBUMIN 3.6 g/dl (3.4-5.0)
[2021-04-03 09:48] LABS: CREATININE 0.6 mg/dL (0.55-1.3)
[2021-04-03 09:50] LABS: BILIRUBIN,TOTAL 0.4 mg/dL (0.2-1)
[2021-04-03] MEDS ORDERED: SODIUM CHLORIDE 250 ML IV ONE (10:00)
[2021-04-03] MEDS ORDERED: FOSAPREPITANT DIMEGLUMINE 150 MG in SODIUM CHLORIDE 145 ML IVPB ONE (10:30)
[2021-04-03] MEDS ORDERED: ATROPINE SO4 0.4 MG/1 ML VIAL SQ ONE (10:30)
[2021-04-03] MEDS ORDERED: PALONOSETRON HCL 0.25 MG/5 ML VIAL IVPUSH ONE (10:30)
[2021-04-03] MEDS ORDERED: DEXAMETHASONE SODIUM PHOSPHATE 10 MG in SODIUM CHLORIDE 50 ML IVPB ONE (10:30)
[2021-04-03] MEDS ORDERED: WATER IVPB ONE ×2 (11:00→14:00)
[2021-04-03] MEDS ORDERED: DENOSUMAB 120 MG/1.7 ML VIAL SQ ONE (11:00)
[2021-04-03] MEDS ORDERED: LEUCOVORIN IVPB ONE (11:00)
[2021-04-03] MEDS ORDERED: SODIUM CHLORIDE 500 ML IV ONE (11:00)
[2021-04-03] MEDS ORDERED: DEXTROSE 5% IVPB ONE ×2 (11:00→14:00)
[2021-04-03] MEDS ORDERED: DEXAMETHASONE SODIUM PHOSPHATE 12 MG in SODIUM CHLORIDE 50 ML IVPB ONE (11:00)
[2021-04-03] MEDS ORDERED: ALTEPLASE (CATHFLO) 2 MG/2 ML VIAL NR ONE (11:15)
[2021-04-03] MEDS ORDERED: FLUOROURACIL CP ONE (13:00)
[2021-04-03] MEDS ORDERED: SODIUM CHLORIDE CP ONE (13:00)
[2021-04-03] MEDS ORDERED: IRINOTECAN HCL IVPB ONE (14:00)
[2021-04-03] MEDS ORDERED: FLUOROURACIL 3,500 MG in SODIUM CHLORIDE 22 ML CP ONE (15:30)
[2021-04-03 18:04] VITALS: TEMP 98.3
[2021-04-03] MEDS ORDERED: PORTA CATH FLUSH 10 ML IVPUSH ONE (18:04)
[2021-04-04 08:54] VITALS: BP 132/81; PULSE 72
[2021-04-04] MEDS ORDERED: PORTA CATH FLUSH 10 ML IVPUSH ONE (08:54)
== END 2021-04-03 18:57 | disposition home or self-care (01) ==
LOC: JONCCHEMO 08:48
PROVIDERS: ATTEND Internal Medicine Hematology & Oncology
PROC: 3E04305 Introduction of Other Antineoplastic into Central Vein, Percutaneous Approach (ICD-10-PCS; principal; 2021-04-03)
PROC: 3E0437Z Introduction of Electrolytic and Water Balance Substance into Central Vein, Percutaneous Approach (ICD-10-PCS; 2021-04-03)
DX: Z51.11 Encounter for antineoplastic chemotherapy (principal); C25.9 Malignant neoplasm of pancreas, unspecified
CPT/HCPCS: 36415; 80053; 85025; 96361; 96366; 96367; 96375; 96413; 96417; J0897; J1453; J2469; J2997; J9206; J9263

== ENCOUNTER 2021-04-05 09:40 | Day surgery (SDC) | payer OTHER ==
[2021-04-05 18:20] VITALS: BP 111/68; PULSE 60; TEMP 98.4
== END 2021-04-05 16:35 | disposition home or self-care (01) ==
LOC: JONCNONCHE 09:40
PROVIDERS: ATTEND Internal Medicine Hematology & Oncology
PROC: 2W54XYZ Removal of Other Device on Chest Wall (ICD-10-PCS; principal; 2021-04-05)
DX: Z53.8 Procedure and treatment not carried out for other reasons (principal)
CPT/HCPCS: 96379

== ENCOUNTER → 2021-04-17 | Day surgery (SDC) | payer OTHER ==
[~2021-04-17] MED LIST changes: -ATROPINE SO4 0.4 MG/1 ML VIAL SQ ONE; -DEXTROSE 5% IVPB ONE; -FLUOROURACIL CP ONE; -FOSAPREPITANT DIMEGLUMINE 150 MG in SODIUM CHLORIDE 145 ML IVPB ONE; +GEMCITABINE HCL IV ONE; -LEUCOVORIN IVPB ONE; +PACLITAXEL PROTEIN BOUND IVPB ONE; -SODIUM CHLORIDE CP ONE; +SODIUM CHLORIDE IV ONE; +SODIUM CHLORIDE IVPB ONE; -WATER IVPB ONE
[2021-04-17 09:00] LABS: HEMOGLOBIN 15.5 GM/dL (10.7-15.3); MCH 30.3 pg (25.7-33.7); MCHC 33.6 g/dl (32.0-36.0); MEAN CELL VOLUME 90.2 fl (80-96); MEAN PLT VOLUME 6.6 fl (7.5-11.1); PLATELET COUNT 203 10^3/uL (134-434); RBC 5.11 M/mm3 (3.60-5.2); RDW 15.4 % (11.6-15.6); WHITE BLOOD COUNT 2.7 K/mm3 (4.0-10.0)
[2021-04-17 09:18] LABS: ALBUMIN 3.9 g/dl (3.4-5.0); BLOOD UREA NITROGEN 8.4 mg/dL (7-18)
[2021-04-17 09:21] LABS: CALCIUM 8.2 mg/dL (8.5-10.1); CREATININE 0.5 mg/dL (0.55-1.3)
[2021-04-17 09:23] LABS: BILIRUBIN,TOTAL 0.5 mg/dL (0.2-1); TOT PROT 7.2 g/dl (6.4-8.2)
[2021-04-17 10:07] LABS: ANISOCYTOSIS 1+; MACROCYTOSIS 0
== END | disposition home or self-care (01) ==
LOC: JONCCHEMO 07:20
PROVIDERS: ATTEND Internal Medicine Hematology & Oncology
DX: Z53.8 Procedure and treatment not carried out for other reasons (principal)
CPT/HCPCS: 36415; 80053; 82378; 82607; 82746; 84439; 84443; 85025

== ENCOUNTER 2021-05-01 08:11 | Day surgery (SDC) | payer OTHER ==
[2021-05-01] MEDS ORDERED: SODIUM CHLORIDE 250 ML IV ONE (09:00)
[2021-05-01 09:24] LABS: HEMATOCRIT 42.8 % (32.4-45.2); HEMOGLOBIN 14.6 GM/dL (10.7-15.3); LYMPH % 42.2 % (8-40); MCH 30.9 pg (25.7-33.7); MCHC 34.1 g/dl (32.0-36.0); MEAN CELL VOLUME 90.6 fl (80-96); MEAN PLT VOLUME 6.6 fl (7.5-11.1); MONO % 12.1 % (3.8-10.2); NEUT % 41.7 % (42.8-82.8); PLATELET COUNT 297 10^3/uL (134-434); RBC 4.72 M/mm3 (3.60-5.2); RDW 15.5 % (11.6-15.6); WHITE BLOOD COUNT 3.4 K/mm3 (4.0-10.0)
[2021-05-01 09:50] LABS: ALBUMIN 3.7 g/dl (3.4-5.0); BLOOD UREA NITROGEN 13.4 mg/dL (7-18)
[2021-05-01 09:53] LABS: CREATININE 0.6 mg/dL (0.55-1.3)
[2021-05-01 09:55] LABS: BILIRUBIN,TOTAL 0.6 mg/dL (0.2-1); TOT PROT 7.2 g/dl (6.4-8.2)
[2021-05-01] MEDS ORDERED: PALONOSETRON HCL 0.25 MG/5 ML VIAL IVPUSH ONE (10:00)
[2021-05-01] MEDS ORDERED: DEXAMETHASONE SODIUM PHOSPHATE 10 MG in SODIUM CHLORIDE 50 ML IVPB ONE (10:00)
[2021-05-01] MEDS ORDERED: PACLITAXEL PROTEIN BOUND IVPB ONE ×2 (10:30→11:00)
[2021-05-01] MEDS ORDERED: SODIUM CHLORIDE IVPB ONE ×2 (10:30→11:00)
[2021-05-01] MEDS ORDERED: SODIUM CHLORIDE IV ONE ×2 (11:00→11:30)
[2021-05-01] MEDS ORDERED: GEMCITABINE HCL IV ONE ×2 (11:00→11:30)
[2021-05-01 17:25] VITALS: TEMP 97.7
[2021-05-01 17:41] VITALS: BP 139/85; PULSE 72
== END 2021-05-01 14:45 | disposition home or self-care (01) ==
LOC: JONCNONCHE 08:11
PROVIDERS: ATTEND Internal Medicine Hematology & Oncology
PROC: 3E04305 Introduction of Other Antineoplastic into Central Vein, Percutaneous Approach (ICD-10-PCS; principal; 2021-05-01)
PROC: 3E0437Z Introduction of Electrolytic and Water Balance Substance into Central Vein, Percutaneous Approach (ICD-10-PCS; 2021-05-01)
DX: Z51.11 Encounter for antineoplastic chemotherapy (principal); C25.9 Malignant neoplasm of pancreas, unspecified
CPT/HCPCS: 36415; 80053; 85025; 96375; 96413; 96417; J2469; J9264

== ENCOUNTER 2021-05-08 07:40 | Day surgery (SDC) | payer OTHER ==
[2021-05-08 09:25] LABS: HEMATOCRIT 39.6 % (32.4-45.2); MCH 29.7 pg (25.7-33.7); MCHC 32.8 g/dl (32.0-36.0); MEAN CELL VOLUME 90.6 fl (80-96); MEAN PLT VOLUME 6.8 fl (7.5-11.1); PLATELET COUNT 159 10^3/uL (134-434); RBC 4.37 M/mm3 (3.60-5.2); RDW 15.5 % (11.6-15.6); WHITE BLOOD COUNT 12.7 K/mm3 (4.0-10.0)
[2021-05-08 09:46] LABS: CALCIUM 8.7 mg/dL (8.5-10.1)
[2021-05-08 09:47] LABS: ALBUMIN 3.3 g/dl (3.4-5.0); BLOOD UREA NITROGEN 10.2 mg/dL (7-18)
[2021-05-08 09:48] LABS: CREATININE 0.5 mg/dL (0.55-1.3)
[2021-05-08 09:51] LABS: BILIRUBIN,TOTAL 0.4 mg/dL (0.2-1); TOT PROT 6.8 g/dl (6.4-8.2)
[2021-05-08] MEDS ORDERED: SODIUM CHLORIDE 250 ML IV ONE (10:00)
[2021-05-08] MEDS ORDERED: DEXAMETHASONE SODIUM PHOSPHATE 10 MG in SODIUM CHLORIDE 50 ML IVPB ONE (10:30)
[2021-05-08] MEDS ORDERED: PALONOSETRON HCL 0.25 MG/5 ML VIAL IVPUSH ONE (10:30)
[2021-05-08] MEDS ORDERED: SODIUM CHLORIDE IVPB ONE (11:00)
[2021-05-08] MEDS ORDERED: PACLITAXEL PROTEIN BOUND IVPB ONE (11:00)
[2021-05-08] MEDS ORDERED: SODIUM CHLORIDE IV ONE (11:30)
[2021-05-08] MEDS ORDERED: GEMCITABINE HCL IV ONE (11:30)
[2021-05-08] MEDS ORDERED: DENOSUMAB 120 MG/1.7 ML VIAL SQ ONE (12:03)
[2021-05-08 18:14] VITALS: TEMP 98.1
[2021-05-08 18:24] VITALS: BP 154/92; PULSE 75
== END 2021-05-08 14:00 | disposition home or self-care (01) ==
LOC: JONCCHEMO 07:40
PROVIDERS: ATTEND Internal Medicine Hematology & Oncology
DX: Z51.11 Encounter for antineoplastic chemotherapy (principal); C25.9 Malignant neoplasm of pancreas, unspecified
CPT/HCPCS: 36415; 80053; 82378; 83735; 85025; 96367; 96375; 96413; 96417; J0897; J2469; J9264

== ENCOUNTER 2021-05-15 07:35 | Day surgery (SDC) | payer OTHER ==
[2021-05-15 09:51] LABS: BASO % 0.5 % (0-2.0); EOS % 0.4 % (0-4.5); HEMATOCRIT 41.6 % (32.4-45.2); HEMOGLOBIN 13.9 GM/dL (10.7-15.3); LYMPH % 28.3 % (8-40); MCH 30.3 pg (25.7-33.7); MCHC 33.4 g/dl (32.0-36.0); MEAN CELL VOLUME 90.7 fl (80-96); MEAN PLT VOLUME 6.9 fl (7.5-11.1); MONO % 7.3 % (3.8-10.2); NEUT % 63.5 % (42.8-82.8); PLATELET COUNT 121 10^3/uL (134-434); RBC 4.59 M/mm3 (3.60-5.2); RDW 15.4 % (11.6-15.6); WHITE BLOOD COUNT 6.3 K/mm3 (4.0-10.0)
[2021-05-15] MEDS ORDERED: SODIUM CHLORIDE 250 ML IV ONE (10:00)
[2021-05-15 10:10] LABS: CALCIUM 8.7 mg/dL (8.5-10.1)
[2021-05-15 10:11] LABS: ALBUMIN 3.8 g/dl (3.4-5.0); BLOOD UREA NITROGEN 9.5 mg/dL (7-18)
[2021-05-15 10:14] LABS: CREATININE 0.6 mg/dL (0.55-1.3)
[2021-05-15 10:15] LABS: BILIRUBIN,TOTAL 0.3 mg/dL (0.2-1); TOT PROT 7.1 g/dl (6.4-8.2)
[2021-05-15] MEDS ORDERED: PALONOSETRON HCL 0.25 MG/5 ML VIAL IVPUSH ONE (10:30)
[2021-05-15] MEDS ORDERED: DEXAMETHASONE SODIUM PHOSPHATE 10 MG in SODIUM CHLORIDE 50 ML IVPB ONE (10:30)
[2021-05-15] MEDS ORDERED: PACLITAXEL PROTEIN BOUND IVPB ONE (11:00)
[2021-05-15] MEDS ORDERED: SODIUM CHLORIDE IVPB ONE (11:00)
[2021-05-15] MEDS ORDERED: GEMCITABINE HCL IV ONE (11:30)
[2021-05-15] MEDS ORDERED: SODIUM CHLORIDE IV ONE (11:30)
[2021-05-15 17:38] VITALS: BP 116/75; PULSE 71; TEMP 97.7
[2021-05-15] MEDS ORDERED: PORTA CATH FLUSH 10 ML IVPUSH ONE (17:40)
== END 2021-05-15 15:00 | disposition home or self-care (01) ==
LOC: JONCCHEMO 07:35
PROVIDERS: ATTEND Internal Medicine Hematology & Oncology
DX: Z51.11 Encounter for antineoplastic chemotherapy (principal); C25.9 Malignant neoplasm of pancreas, unspecified
CPT/HCPCS: 36415; 80053; 85025; 96367; 96375; 96413; 96417; J2469; J9264

== ENCOUNTER 2021-05-29 08:25 | Day surgery (SDC) | payer OTHER ==
[2021-05-29] MEDS ORDERED: SODIUM CHLORIDE 250 ML IV ONE (09:00)
[2021-05-29] MEDS ORDERED: PALONOSETRON HCL 0.25 MG/5 ML VIAL IVPUSH ONE (09:30)
[2021-05-29] MEDS ORDERED: DEXAMETHASONE SODIUM PHOSPHATE 10 MG in SODIUM CHLORIDE 50 ML IVPB ONE (09:30)
[2021-05-29 09:50] LABS: BASO % 0.9 % (0-2.0); EOS % 1.8 % (0-4.5); HEMATOCRIT 41.4 % (32.4-45.2); HEMOGLOBIN 13.8 GM/dL (10.7-15.3); LYMPH % 24.9 % (8-40); MCH 30.5 pg (25.7-33.7); MCHC 33.5 g/dl (32.0-36.0); MEAN CELL VOLUME 91.1 fl (80-96); MEAN PLT VOLUME 6.5 fl (7.5-11.1); MONO % 8.4 % (3.8-10.2); PLATELET COUNT 481 10^3/uL (134-434); RBC 4.54 M/mm3 (3.60-5.2); RDW 16.1 % (11.6-15.6); WHITE BLOOD COUNT 5.4 K/mm3 (4.0-10.0)
[2021-05-29] MEDS ORDERED: SODIUM CHLORIDE IVPB ONE (10:00)
[2021-05-29] MEDS ORDERED: PACLITAXEL PROTEIN BOUND IVPB ONE (10:00)
[2021-05-29 10:15] LABS: ALBUMIN 3.3 g/dl (3.4-5.0); CALCIUM 9.1 mg/dL (8.5-10.1)
[2021-05-29 10:17] LABS: CREATININE 0.5 mg/dL (0.55-1.3)
[2021-05-29 10:19] LABS: BILIRUBIN,TOTAL 0.4 mg/dL (0.2-1)
[2021-05-29 10:20] LABS: TOT PROT 6.8 g/dl (6.4-8.2)
[2021-05-29] MEDS ORDERED: GEMCITABINE HCL IV ONE (10:30)
[2021-05-29] MEDS ORDERED: SODIUM CHLORIDE IV ONE (10:30)
[2021-05-29 16:14] VITALS: BP 99/62; PULSE 74; TEMP 97.8
[2021-05-29] MEDS ORDERED: PORTA CATH FLUSH 10 ML IVPUSH PRN (16:14)
== END 2021-05-29 14:00 | disposition home or self-care (01) ==
LOC: JONCCHEMO 08:25
PROVIDERS: ATTEND Internal Medicine Hematology & Oncology
DX: Z51.11 Encounter for antineoplastic chemotherapy (principal); C25.9 Malignant neoplasm of pancreas, unspecified
CPT/HCPCS: 36415; 80053; 82378; 85025; 96367; 96375; 96413; 96417; J2469; J9264

== ENCOUNTER 2021-06-05 07:54 | Day surgery (SDC) | payer OTHER ==
[2021-06-05] MEDS ORDERED: SODIUM CHLORIDE 250 ML IV ONE (09:00)
[2021-06-05] MEDS ORDERED: DEXAMETHASONE SODIUM PHOSPHATE 10 MG in SODIUM CHLORIDE 50 ML IVPB ONE (09:30)
[2021-06-05] MEDS ORDERED: PALONOSETRON HCL 0.25 MG/5 ML VIAL IVPUSH ONE (09:30)
[2021-06-05 09:39] LABS: HEMATOCRIT 39.9 % (32.4-45.2); MCH 29.6 pg (25.7-33.7); MCHC 32.5 g/dl (32.0-36.0); MEAN PLT VOLUME 6.6 fl (7.5-11.1); PLATELET COUNT 399 10^3/uL (134-434); RBC 4.39 M/mm3 (3.60-5.2); RDW 15.8 % (11.6-15.6); WHITE BLOOD COUNT 11.1 K/mm3 (4.0-10.0)
[2021-06-05 10:00] LABS: CALCIUM 8.5 mg/dL (8.5-10.1)
[2021-06-05] MEDS ORDERED: PACLITAXEL PROTEIN BOUND IVPB ONE (10:00)
[2021-06-05] MEDS ORDERED: SODIUM CHLORIDE IVPB ONE (10:00)
[2021-06-05 10:01] LABS: ALBUMIN 3.2 g/dl (3.4-5.0); MAGNESIUM 2.6 mg/dL (1.8-2.4)
[2021-06-05 10:04] LABS: CREATININE 0.6 mg/dL (0.55-1.3)
[2021-06-05 10:05] LABS: BILIRUBIN,TOTAL 0.3 mg/dL (0.2-1); TOT PROT 6.7 g/dl (6.4-8.2)
[2021-06-05] MEDS ORDERED: GEMCITABINE HCL IV ONE (10:30)
[2021-06-05] MEDS ORDERED: SODIUM CHLORIDE IV ONE (10:30)
[2021-06-05 11:20] LABS: ANISOCYTOSIS 0; MACROCYTOSIS 0; PLATELET ESTIMATE NORMAL
[2021-06-05 17:36] VITALS: TEMP 97.8
[2021-06-05] MEDS ORDERED: PORTA CATH FLUSH 10 ML IVPUSH PRN (17:36)
[2021-06-05 17:39] VITALS: BP 125/81; PULSE 75
== END 2021-06-05 13:10 | disposition home or self-care (01) ==
LOC: JONCCHEMO 07:54
PROVIDERS: ATTEND Internal Medicine Hematology & Oncology
DX: Z51.11 Encounter for antineoplastic chemotherapy (principal); C25.9 Malignant neoplasm of pancreas, unspecified
CPT/HCPCS: 36415; 80053; 83735; 85025; 96367; 96375; 96413; 96417; J2469; J9264

== ENCOUNTER 2021-06-12 07:12 | Day surgery (SDC) | payer OTHER ==
[2021-06-12] MEDS ORDERED: SODIUM CHLORIDE 250 ML IV ONE (09:00)
[2021-06-12] MEDS ORDERED: DEXAMETHASONE SODIUM PHOSPHATE 10 MG in SODIUM CHLORIDE 50 ML IVPB ONE (09:30)
[2021-06-12] MEDS ORDERED: PALONOSETRON HCL 0.25 MG/5 ML VIAL IVPUSH ONE (09:30)
[2021-06-12 09:51] LABS: BASO % 1.3 % (0-2.0); EOS % 0.7 % (0-4.5); HEMATOCRIT 40.2 % (32.4-45.2); HEMOGLOBIN 13.6 GM/dL (10.7-15.3); LYMPH % 34.8 % (8-40); MCH 30.4 pg (25.7-33.7); MCHC 33.8 g/dl (32.0-36.0); MEAN PLT VOLUME 6.4 fl (7.5-11.1); MONO % 8.8 % (3.8-10.2); NEUT % 54.4 % (42.8-82.8); PLATELET COUNT 152 10^3/uL (134-434); RBC 4.46 M/mm3 (3.60-5.2); RDW 16.1 % (11.6-15.6); WHITE BLOOD COUNT 4.6 K/mm3 (4.0-10.0)
[2021-06-12] MEDS ORDERED: SODIUM CHLORIDE IVPB ONE (10:00)
[2021-06-12] MEDS ORDERED: PACLITAXEL PROTEIN BOUND IVPB ONE (10:00)
[2021-06-12 10:12] LABS: ALBUMIN 3.4 g/dl (3.4-5.0); BLOOD UREA NITROGEN 13.5 mg/dL (7-18); CALCIUM 8.6 mg/dL (8.5-10.1); MAGNESIUM 2.5 mg/dL (1.8-2.4)
[2021-06-12 10:15] LABS: CREATININE 0.6 mg/dL (0.55-1.3)
[2021-06-12 10:17] LABS: BILIRUBIN,TOTAL 0.5 mg/dL (0.2-1); TOT PROT 6.7 g/dl (6.4-8.2)
[2021-06-12] MEDS ORDERED: GEMCITABINE HCL IV ONE (10:30)
[2021-06-12] MEDS ORDERED: SODIUM CHLORIDE IV ONE (10:30)
[2021-06-12] MEDS ORDERED: DENOSUMAB 120 MG/1.7 ML VIAL SQ ONE (12:00)
[2021-06-12 17:30] VITALS: TEMP 98.2
[2021-06-12 17:37] VITALS: BP 139/81; PULSE 77
[2021-06-12] MEDS ORDERED: PORTA CATH FLUSH 10 ML IVPUSH PRN (17:37)
== END 2021-06-12 14:25 | disposition home or self-care (01) ==
LOC: JONCCHEMO 07:12
PROVIDERS: ATTEND Internal Medicine Hematology & Oncology
PROC: 3E04305 Introduction of Other Antineoplastic into Central Vein, Percutaneous Approach (ICD-10-PCS; principal; 2021-06-12)
PROC: 3E013GC Introduction of Other Therapeutic Substance into Subcutaneous Tissue, Percutaneous Approach (ICD-10-PCS; 2021-06-12)
DX: Z51.11 Encounter for antineoplastic chemotherapy (principal); C25.9 Malignant neoplasm of pancreas, unspecified
CPT/HCPCS: 36415; 80053; 83735; 85025; 96372; 96375; 96413; 96417; J0897; J2469; J9264

== ENCOUNTER 2021-06-26 07:14 | Day surgery (SDC) | payer OTHER ==
[2021-06-26] MEDS ORDERED: PALONOSETRON HCL 0.25 MG/5 ML VIAL IVPUSH ONE (10:00)
[2021-06-26] MEDS ORDERED: DEXAMETHASONE SODIUM PHOSPHATE 10 MG in SODIUM CHLORIDE 50 ML IVPB ONE (10:00)
[2021-06-26] MEDS ORDERED: SODIUM CHLORIDE 250 ML IV ONE (10:00)
[2021-06-26 10:14] LABS: BASO % 0.9 % (0-2.0); EOS % 2.1 % (0-4.5); HEMATOCRIT 41.3 % (32.4-45.2); HEMOGLOBIN 13.8 GM/dL (10.7-15.3); LYMPH % 22.2 % (8-40); MCH 30.3 pg (25.7-33.7); MCHC 33.5 g/dl (32.0-36.0); MEAN CELL VOLUME 90.4 fl (80-96); MEAN PLT VOLUME 6.4 fl (7.5-11.1); MONO % 7.8 % (3.8-10.2); PLATELET COUNT 547 10^3/uL (134-434); RBC 4.57 M/mm3 (3.60-5.2); RDW 16.8 % (11.6-15.6); WHITE BLOOD COUNT 6.2 K/mm3 (4.0-10.0)
[2021-06-26] MEDS ORDERED: PACLITAXEL PROTEIN BOUND IVPB ONE (10:30)
[2021-06-26] MEDS ORDERED: SODIUM CHLORIDE IVPB ONE (10:30)
[2021-06-26 10:36] LABS: CALCIUM 8.7 mg/dL (8.5-10.1)
[2021-06-26 10:37] LABS: ALBUMIN 3.3 g/dl (3.4-5.0); BLOOD UREA NITROGEN 9.4 mg/dL (7-18)
[2021-06-26 10:40] LABS: CREATININE 0.5 mg/dL (0.55-1.3)
[2021-06-26 10:41] LABS: BILIRUBIN,TOTAL 0.8 mg/dL (0.2-1); TOT PROT 6.6 g/dl (6.4-8.2)
[2021-06-26] MEDS ORDERED: GEMCITABINE HCL IV ONE (11:00)
[2021-06-26] MEDS ORDERED: SODIUM CHLORIDE IV ONE (11:00)
[2021-06-26 17:28] VITALS: BP 109/65; PULSE 78; TEMP 97.8
[2021-06-26] MEDS ORDERED: PORTA CATH FLUSH 10 ML IVPUSH PRN (17:28)
== END 2021-06-26 15:20 | disposition home or self-care (01) ==
LOC: JONCCHEMO 07:14
PROVIDERS: ATTEND Internal Medicine Hematology & Oncology
DX: Z51.11 Encounter for antineoplastic chemotherapy (principal); C25.9 Malignant neoplasm of pancreas, unspecified
CPT/HCPCS: 36415; 80053; 85025; 96367; 96375; 96413; 96417; J2469; J9264

== ENCOUNTER 2021-07-03 06:43 | Day surgery (SDC) | payer OTHER ==
[2021-07-03] MEDS ORDERED: SODIUM CHLORIDE 250 ML IV ONE (09:00)
[2021-07-03] MEDS ORDERED: PALONOSETRON HCL 0.25 MG/5 ML VIAL IVPUSH ONE (09:30)
[2021-07-03] MEDS ORDERED: DEXAMETHASONE SODIUM PHOSPHATE 10 MG in SODIUM CHLORIDE 50 ML IVPB ONE (09:30)
[2021-07-03] MEDS ORDERED: PACLITAXEL PROTEIN BOUND IVPB ONE (10:00)
[2021-07-03] MEDS ORDERED: SODIUM CHLORIDE IVPB ONE (10:00)
[2021-07-03 10:19] LABS: HEMATOCRIT 39.4 % (32.4-45.2); MCH 29.9 pg (25.7-33.7); MEAN CELL VOLUME 90.5 fl (80-96); MEAN PLT VOLUME 6.6 fl (7.5-11.1); PLATELET COUNT 338 10^3/uL (134-434); RBC 4.36 M/mm3 (3.60-5.2); RDW 16.7 % (11.6-15.6)
[2021-07-03 10:37] LABS: ALBUMIN 3.4 g/dl (3.4-5.0); BLOOD UREA NITROGEN 13.1 mg/dL (7-18)
[2021-07-03 10:40] LABS: CREATININE 0.5 mg/dL (0.55-1.3)
[2021-07-03 10:42] LABS: BILIRUBIN,TOTAL 0.4 mg/dL (0.2-1); TOT PROT 6.9 g/dl (6.4-8.2)
[2021-07-03] MEDS ORDERED: SODIUM CHLORIDE IV ONE (11:00)
[2021-07-03] MEDS ORDERED: GEMCITABINE HCL IV ONE (11:00)
[2021-07-03 11:14] LABS: ANISOCYTOSIS 0; HELMET CELLS 0; HOWELL-JOLLY BODIES 0; MACROCYTOSIS 0; OVALOCYTE 0; ROULEAU 0; SICKELED CELLS 0; TARGET CELLS 0; TEAR DROP CELLS 0; TOXIC GRANULATION 0
[2021-07-03] MEDS ORDERED: PORTA CATH FLUSH 10 ML IVPUSH PRN (13:17)
[2021-07-03 13:18] VITALS: BP 125/81; PULSE 68; TEMP 97.7
[2021-07-03] MEDS ORDERED: ALTEPLASE (CATHFLO) 2 MG/2 ML VIAL IVPUSH ONE (13:45)
== END 2021-07-03 14:13 | disposition home or self-care (01) ==
LOC: JONCCHEMO 06:43
PROVIDERS: ATTEND Internal Medicine Hematology & Oncology
DX: Z51.11 Encounter for antineoplastic chemotherapy (principal); C25.9 Malignant neoplasm of pancreas, unspecified
CPT/HCPCS: 36415; 80053; 82378; 85025; 96367; 96375; 96413; 96417; J2469; J9264

== ENCOUNTER 2021-07-10 07:13 | Day surgery (SDC) | payer OTHER ==
[2021-07-10] MEDS ORDERED: SODIUM CHLORIDE 250 ML IV ONE ×2 (09:00)
[2021-07-10 09:29] LABS: BASO % 0.8 % (0-2.0); EOS % 0.4 % (0-4.5); HEMATOCRIT 38.2 % (32.4-45.2); HEMOGLOBIN 12.9 GM/dL (10.7-15.3); LYMPH % 21.8 % (8-40); MCH 30.7 pg (25.7-33.7); MCHC 33.9 g/dl (32.0-36.0); MEAN CELL VOLUME 90.7 fl (80-96); MEAN PLT VOLUME 6.5 fl (7.5-11.1); MONO % 7.8 % (3.8-10.2); NEUT % 69.2 % (42.8-82.8); PLATELET COUNT 168 10^3/uL (134-434); RBC 4.21 M/mm3 (3.60-5.2); RDW 16.4 % (11.6-15.6); WHITE BLOOD COUNT 5.1 K/mm3 (4.0-10.0)
[2021-07-10] MEDS ORDERED: PALONOSETRON HCL 0.25 MG/5 ML VIAL IVPUSH ONE ×2 (09:30)
[2021-07-10] MEDS ORDERED: DEXAMETHASONE SODIUM PHOSPHATE 10 MG in SODIUM CHLORIDE 50 ML IVPB ONE (09:30)
[2021-07-10] MEDS ORDERED: PACLITAXEL PROTEIN BOUND IVPB ONE (10:00)
[2021-07-10] MEDS ORDERED: SODIUM CHLORIDE IVPB ONE (10:00)
[2021-07-10] MEDS ORDERED: GEMCITABINE HCL IV ONE ×2 (10:30→10:45)
[2021-07-10] MEDS ORDERED: DENOSUMAB 120 MG/1.7 ML VIAL SQ ONE (10:30)
[2021-07-10] MEDS ORDERED: SODIUM CHLORIDE IV ONE ×2 (10:30→10:45)
[2021-07-10 10:53] LABS: CALCIUM 8.6 mg/dL (8.5-10.1)
[2021-07-10 10:54] LABS: ALBUMIN 3.3 g/dl (3.4-5.0); BLOOD UREA NITROGEN 10.8 mg/dL (7-18)
[2021-07-10 10:55] LABS: CREATININE 0.5 mg/dL (0.55-1.3)
[2021-07-10 10:56] LABS: TOT PROT 6.6 g/dl (6.4-8.2)
[2021-07-10 10:57] LABS: BILIRUBIN,TOTAL 0.5 mg/dL (0.2-1)
[2021-07-10 12:48] VITALS: BP 120/81; PULSE 75; TEMP 98.3
[2021-07-10] MEDS ORDERED: PORTA CATH FLUSH 10 ML IVPUSH PRN (17:12)
== END 2021-07-10 14:30 | disposition home or self-care (01) ==
LOC: JONCCHEMO 07:13
PROVIDERS: ATTEND Internal Medicine Hematology & Oncology
PROC: 3E04305 Introduction of Other Antineoplastic into Central Vein, Percutaneous Approach (ICD-10-PCS; principal; 2021-07-10)
PROC: 3E013GC Introduction of Other Therapeutic Substance into Subcutaneous Tissue, Percutaneous Approach (ICD-10-PCS; 2021-07-10)
DX: Z51.11 Encounter for antineoplastic chemotherapy (principal); C25.9 Malignant neoplasm of pancreas, unspecified
CPT/HCPCS: 36415; 80053; 85025; 96367; 96372; 96375; 96413; J0897; J2469; J9264

== ENCOUNTER → 2021-07-24 | Day surgery (SDC) | payer OTHER ==
[2021-07-24 11:08] LABS: BASO % 0.8 % (0-2.0); EOS % 0.7 % (0-4.5); HEMATOCRIT 38.7 % (32.4-45.2); HEMOGLOBIN 12.6 GM/dL (10.7-15.3); LYMPH % 16.2 % (8-40); MCH 29.5 pg (25.7-33.7); MCHC 32.6 g/dl (32.0-36.0); MEAN CELL VOLUME 90.6 fl (80-96); MEAN PLT VOLUME 6.3 fl (7.5-11.1); MONO % 8.2 % (3.8-10.2); NEUT % 74.1 % (42.8-82.8); PLATELET COUNT 611 10^3/uL (134-434); RBC 4.27 M/mm3 (3.60-5.2); WHITE BLOOD COUNT 6.5 K/mm3 (4.0-10.0)
[2021-07-24 11:27] LABS: CALCIUM 8.8 mg/dL (8.5-10.1)
[2021-07-24 11:28] LABS: ALBUMIN 2.9 g/dl (3.4-5.0); BLOOD UREA NITROGEN 10.7 mg/dL (7-18)
[2021-07-24 11:31] LABS: CREATININE 0.5 mg/dL (0.55-1.3)
[2021-07-24 11:32] LABS: BILIRUBIN,TOTAL 0.6 mg/dL (0.2-1)
[2021-07-24 11:33] LABS: TOT PROT 6.3 g/dl (6.4-8.2)
== END | disposition home or self-care (01) ==
LOC: JONCCHEMO 07:16
PROVIDERS: ATTEND Internal Medicine Hematology & Oncology
DX: Z53.8 Procedure and treatment not carried out for other reasons (principal)
CPT/HCPCS: 36415; 80053; 85025; 96365